=== PATIENT | female | born 1980 | race Native Hawaiian/Other Pacific Islander ===

== ENCOUNTER 2020-12-05 08:13 | Outpatient (CLI) | payer BC ==
[~2020-12-05 08:13] MED LIST: ADIPEX PO; CELEXA10 MG PO; HYDR25TA60 PO
== END 2020-12-05 21:36 | disposition home or self-care (01) ==
LOC: CT 08:13
PROVIDERS: ATTEND Nurse Practitioner Family
DX: N39.0 Urinary tract infection, site not specified (principal); R30.0 Dysuria; R10.9 Unspecified abdominal pain
CPT/HCPCS: Q9963

== ENCOUNTER 2022-07-23 08:20 | Outpatient (CLI) | payer BC | END 2022-07-23 19:08 | disposition home or self-care (01) | LOC: MAMMO 08:20 | PROVIDERS: ATTEND Nurse Practitioner Family | DX: Z12.39 Encounter for other screening for malignant neoplasm of breast (principal); Z12.31 Encounter for screening mammogram for malignant neoplasm of breast ==

== ENCOUNTER 2022-12-05 09:23 | Outpatient (CLI) | payer BC | END 2022-12-05 21:19 | disposition home or self-care (01) | LOC: RAD 09:23 | PROVIDERS: ATTEND Nurse Practitioner Family | DX: R07.89 Other chest pain (principal) | CPT/HCPCS: 93005; 93225 ==